=== PATIENT | male | born 1995 | race Hispanic/Latino ===

== ENCOUNTER 2017-12-11 12:17 | Outpatient (CLI) | payer OTHER | END 2017-12-11 12:18 | disposition home or self-care (01) | LOC: BICRAD 12:17 | PROVIDERS: ATTEND Family Medicine | DX: M54.2 Cervicalgia (principal) | CPT/HCPCS: 72052 ==

== ENCOUNTER 2018-01-10 15:33 | Emergency (ER) | payer OTHER ==
[2018-01-10 18:04] LABS: Hemoglobin 12.4 g/dL (14.0-18.0); Mean Corpuscular HGB CONC 31.2 g/dL (32.0-36.0); Mean Corpuscular Hemoglobin 27.9 pg (27.0-31.0); Mean Corpuscular Volume 89.3 fl (80.0-94.0); Mean Platelet Volume 7.7 fL (7.4-10.4); Platelet Count 301 thou/uL (130-400); Red Blood Cell (RBC) Count 4.46 mill/uL (4.70-6.10); White Blood Cell (WBC) Count 22.9 thou/uL (4.8-10.8)
[2018-01-10 18:19] LABS: Band 11 % (5-11); Lymphocytes 17 % (21-51); MDiff Complete? YES; Metamyelocyte 1 % (0-0); Monocytes 6 % (0-10); Myelocyte 1 % (0-0); Neutrophil 61 % (42-75); PLT Morphology Comment Appears Adequate; Polychromasia SLIGHT = 2-3 cells (100X) (0-2/hpf); Reactive Lymphocytes 3 % (0-10)
[2018-01-10 19:09] LABS: ALT (SGPT) 57 U/L (8-55); AST (SGOT) 19 U/L (5-34); Albumin 4.2 g/dL (3.5-5.0); Alkaline Phosphatase 62 U/L (40-150); Anion Gap 15 mmol/L (10-20); BUN (Urea Nitrogen) 19 mg/dL (8.9-20.6); Bilirubin, Total 0.4 mg/dL (0.2-1.2); Calc. Creatinine Clearance 0 mL/min (70-130); Calcium 9.1 mg/dL (7.8-10.44); Carbon Dioxide 22 mmol/L (22-29); Chloride 97 mmol/L (98-107); Estimated GFR-MDRD Greater than 90; Globulin 2.7 g/dL (2.4-3.5); Glucose 180 mg/dL (70-105); Potassium 4.3 mmol/L (3.5-5.1); Protein, Total 6.9 g/dL (6.0-8.3); Sodium 130 mmol/L (136-145)
== END 2018-01-10 19:00 | disposition short-term general hospital (02) ==
LOC: ERS 15:33
DX: T81.4XXA Infection following a procedure, initial encounter (principal); L08.9 Local infection of the skin and subcutaneous tissue, unspecified; Z85.528 Personal history of other malignant neoplasm of kidney
CPT/HCPCS: 36415; 80053; 85025; 99284

== ENCOUNTER 2018-03-12 12:38 | Emergency (ER) | payer OTHER ==
--- NOTE | 2018-03-12 13:55 | ULT ---
VENOUS DUPLEX SONOGRAM RIGHT UPPER EXTREMITY: History: Right arm pain and edema. FINDINGS: The right internal jugular and subclavian vein were evaluated along with the axillary, brachial, ceph alic, and basilic veins. There is good color and spectral doppler flow. IMPRESSION: No sonographic evidence of DVT right upper extremity. POS: [facility]
== END 2018-03-12 14:30 | disposition home or self-care (01) ==
LOC: ERS 12:38
DX: R20.2 Paresthesia of skin (principal); Z85.528 Personal history of other malignant neoplasm of kidney; Z79.84 Long term (current) use of oral hypoglycemic drugs; Z79.899 Other long term (current) drug therapy

== ENCOUNTER 2018-05-03 18:51 | Emergency (ER) | payer OTHER ==
[2018-05-03 19:47] LABS: #Basophils 0.1 thou/uL (0.0-0.2); #Eosinphils 0.3 thou/uL (0.0-0.7); #Lymphocytes 3.2 thou/uL (1.20-3.40); #Monocytes 0.5 thou/uL (0.11-0.59); #Neutrophils 5.9 thou/uL (1.40-6.50); %Basophils 0.7 % (0.0-1.0); %Eosinophils 2.7 % (0.0-10.0); %Lymphocytes 32.4 % (21.0-51.0); %Monocytes 4.9 % (0.0-10.0); %Neutrophils 59.3 % (42.0-75.0); Hemoglobin 11.9 g/dL (14.0-18.0); Mean Corpuscular Hemoglobin 28.3 pg (27.0-31.0); Mean Corpuscular Volume 83.3 fl (80.0-94.0); Mean Platelet Volume 6.8 fL (7.4-10.4); Platelet Count 601 thou/uL (130-400); RBC Distribution Width 14.1 % (11.5-14.5); Red Blood Cell (RBC) Count 4.21 mill/uL (4.70-6.10)
[2018-05-03 19:51] LABS: Bilirubin Negative (Negative); Blood, Urine Large (Negative); Clarity CLEAR (Clear); Glucose, Urine (Dipstick) Negative (Negative); Leukocyte Negative (Negative); Nitrite Negative (Negative); Protein, Urine (Dipstick) 30 mg/dL (Neg-Trace); Specific Gravity, Urine 1.028 (1.002-1.036); Urobilinogen 0.2 mg/dL (0.2-1.0); pH, Urine 5.5 (5.0-9.0)
[2018-05-03 19:54] LABS: Bacteria/HPF None Seen HPF (None Seen); Hyaline Casts/LPF 4-6 HYALINE CAST LPF (0-3 Hyaline); Pathc Cast-AUWi Flag 0.43 (0-2.49); RBC/HPF 0-3 HPF (0-3); Squamous Epithelial 0-3 HPF (0-3)
[2018-05-03 20:11] LABS: ALT (SGPT) 56 U/L (8-55); AST (SGOT) 36 U/L (5-34); Albumin 4.3 g/dL (3.5-5.0); Alkaline Phosphatase 98 U/L (40-150); Anion Gap 17 mmol/L (10-20); BUN (Urea Nitrogen) 19 mg/dL (8.9-20.6); Bilirubin, Total 0.2 mg/dL (0.2-1.2); Calc. Creatinine Clearance 0 mL/min (70-130); Calcium 9.7 mg/dL (7.8-10.44); Carbon Dioxide 21 mmol/L (22-29); Chloride 104 mmol/L (98-107); Estimated GFR-MDRD 69; Globulin 3.6 g/dL (2.4-3.5); Glucose 230 mg/dL (70-105); Protein, Total 7.9 g/dL (6.0-8.3); Sodium 138 mmol/L (136-145)
--- NOTE | 2018-05-03 21:30 | CT ---
CT ABDOMEN NONCONTRAST CT PELVIS NONCONTRAST: (urolithiasis protocol) DATE: 05/03/2018 TIME: 8:37 p.m. HISTORY: A 23-year-old male with increasing pain at surgical site at right flank. COMPARISON: No prior CTs of the abdomen and pelvis. 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 TECHNIQUE: IV injection of iodinated contrast media: None. Oral contrast media: None. FINDINGS: Other than for urolithiasis, the lack of IV and oral contrast limits the evaluation. The MRI of 06/12/2016 demonstrated a large number of bilateral renal cysts, and an extremely large nu mber of pancreatic cysts. These cysts are difficult to appreciate on the current CT without IV contr ast, other than the fact that they cause lobulation of the contours of these organs. There is a new external drainage catheter in the right flank, with the distal tip adjacent to the lateral aspect of the right kidney, in the Guevara pouch, abutting the right lobe of the liver. There is an approxima tely 3 x 3.5 x 2.5 cm collection of a mixture of gas and soft tissue/fluid density at the right renal lower pole, anteromedially. There is fat stranding representing edema around the upper, mid, and lo wer poles of the right kidney. There is soft tissue density material in the superficial fat abutting the lateral aspect of the right lateral abdominal wall musculature, consistent with recent post surg ical hematoma, expected. There are overlying skin nikolay at the right flank. There is no hydroneph rosis bilaterally. There are a few surgical clips adjacent to the medial aspect of the right kidney, and there is at least one adjacent to the medial aspect of the left kidney. The liver has diffusely low attenuation, representing a fatty liver. No adrenal mass. No splenomegaly. No abdominal aorti c aneurysm. No signs of acute colonic diverticulitis. No ascites or small bowel dilatation. The clint ng bases are grossly clear. IMPRESSION: 1. Post surgical changes involving the right kidney, right perirenal space, and soft tissues superfi cial to the right lateral abdominal wall flank. External drainage catheter remains in the right chin renal space. 2. A small collection of gas at the lower pole of the right kidney. Depending on how recent the jonathan aubrey is, this could represent an expected finding after wedge resection of the right renal lower pole neoplasm. It is difficult to exclude or include a small abscess. This is not amenable to percutane ous drainage. 3. Hepatic steatosis. 4. A large number of pancreatic and bilateral renal cysts, evidence for Von Hippel-Lindau disease. CECILIA Palma POS: [facility]
== END 2018-05-03 23:30 | disposition home or self-care (01) ==
LOC: ERS 18:51
DX: G89.18 Other acute postprocedural pain (principal); E11.9 Type 2 diabetes mellitus without complications; Z85.858 Personal history of malignant neoplasm of other endocrine glands; Z85.05 Personal history of malignant neoplasm of liver; Z85.528 Personal history of other malignant neoplasm of kidney; Z79.4 Long term (current) use of insulin; Z79.899 Other long term (current) drug therapy
CPT/HCPCS: 36415; 74176; 80053; 81003; 81015; 85025

== ENCOUNTER 2018-05-23 22:08 | Observation (INO) | payer OTHER ==
[2018-05-23 23:05] LABS: #Basophils 0.1 thou/uL (0.0-0.2); #Eosinphils 0.5 thou/uL (0.0-0.7); #Lymphocytes 3.3 thou/uL (1.20-3.40); #Monocytes 0.7 thou/uL (0.11-0.59); #Neutrophils 4.4 thou/uL (1.40-6.50); %Basophils 1.2 % (0.0-1.0); %Eosinophils 5.8 % (0.0-10.0); %Lymphocytes 36.4 % (21.0-51.0); %Neutrophils 48.6 % (42.0-75.0); Hemoglobin 12.2 g/dL (14.0-18.0); Mean Corpuscular HGB CONC 31.5 g/dL (32.0-36.0); Mean Corpuscular Hemoglobin 26.4 pg (27.0-31.0); Mean Corpuscular Volume 83.7 fL (78.0-98.0); Mean Platelet Volume 7.8 fL (7.4-10.4); Platelet Count 303 thou/uL (130-400); RBC Distribution Width 15.3 % (11.5-14.5); Red Blood Cell (RBC) Count 4.62 mill/uL (4.70-6.10); White Blood Cell (WBC) Count 9.1 thou/uL (4.8-10.8)
[2018-05-23 23:12] LABS: Prothrombin Time 13.4 SEC (12.0-14.7)
[2018-05-23 23:13] LABS: D-Dimer Test 0.76 *mcg/mL (0.27-0.43)
[2018-05-23 23:21] LABS: ALT (SGPT) 78 U/L (8-55); AST (SGOT) 40 U/L (5-34); Albumin 4.1 g/dL (3.5-5.0); Alkaline Phosphatase 88 U/L (40-150); Anion Gap 14 mmol/L (10-20); BUN (Urea Nitrogen) 17 mg/dL (8.9-20.6); Bilirubin, Total 0.2 mg/dL (0.2-1.2); Calc. Creatinine Clearance 0 mL/min (70-130); Calcium 9.4 mg/dL (7.8-10.44); Carbon Dioxide 23 mmol/L (22-29); Chloride 107 mmol/L (98-107); Estimated GFR-MDRD 75; Glucose 238 mg/dL (70-105); Potassium 3.9 mmol/L (3.5-5.1); Protein, Total 7.1 g/dL (6.0-8.3); Sodium 140 mmol/L (136-145)
[2018-05-23 23:23] LABS: CKMB 1.7 ng/mL (0-6.6); Troponin I Less than 0.010 ng/mL (< 0.028)
--- NOTE | 2018-05-23 23:39 | RAD ---
SINGLE VIEW OF THE CHEST: Comparison: None. History: Renal cell carcinoma status post nephrectomy with hypertension and dyspnea. FINDINGS: Single view of the chest shows a normal sized cardiomediastinal silhouette. There is no evidence of c onsolidation, mass, or pleural effusion. The bones are unremarkable. IMPRESSION: No evidence of acute cardiopulmonary disease. POS: [facility]
[2018-05-24] MEDS ORDERED: Amlodipine 5 MG TAB ONE (01:51)
[2018-05-24] MEDS ORDERED: Lisinopril 10 MG TAB ONE (01:51)
[2018-05-24] MEDS ORDERED: Ondansetron HCl/PF 4 MG/2 ML Vial IVP PRN (03:29)
[2018-05-24] MEDS ORDERED: Acetaminophen 325 MG TAB PO PRN (03:29)
[2018-05-24 03:30] VITALS: BMI 48.9
[2018-05-24] MEDS ORDERED: Azithromycin 500 MG in Sodium Chloride 0.9% 250 ML 250 ML IVPB SCH (03:30)
[2018-05-24 05:07] LABS: #Eosinphils 0.5 thou/uL (0.0-0.7); #Lymphocytes 3.2 thou/uL (1.20-3.40); #Monocytes 0.8 thou/uL (0.11-0.59); #Neutrophils 4.9 thou/uL (1.40-6.50); %Basophils 0.5 % (0.0-1.0); %Lymphocytes 33.9 % (21.0-51.0); %Monocytes 8.7 % (0.0-10.0); %Neutrophils 51.9 % (42.0-75.0); Hemoglobin 11.4 g/dL (14.0-18.0); Mean Corpuscular HGB CONC 33.3 g/dL (32.0-36.0); Mean Corpuscular Hemoglobin 27.3 pg (27.0-31.0); Mean Corpuscular Volume 81.9 fL (78.0-98.0); Platelet Count 287 thou/uL (130-400); RBC Distribution Width 14.6 % (11.5-14.5); White Blood Cell (WBC) Count 9.5 thou/uL (4.8-10.8)
[2018-05-24 05:25] LABS: Anion Gap 14 mmol/L (10-20); BUN (Urea Nitrogen) 15 mg/dL (8.9-20.6); Calc. Creatinine Clearance 233 mL/min (70-130); Calcium 9.2 mg/dL (7.8-10.44); Carbon Dioxide 22 mmol/L (22-29); Chloride 106 mmol/L (98-107); Estimated GFR-MDRD Greater than 90; Glucose 158 mg/dL (70-105); Sodium 138 mmol/L (136-145)
--- NOTE | 2018-05-24 07:48 | HP ---
CODE STATUS: FULL CODE. TIME OF EVALUATION: 03:32 a.m. CHIEF COMPLAINT: Shortness of breath. PRIMARY CARE DOCTOR: Dr. Sreedhar Wharton. HISTORY OF PRESENT ILLNESS: This is a 23-year-old male patient with a past medical history of obesity, history of Von Hippel-Lindau syndrome, patient came to the hospital after having severe shortness of breath, no clear triggers, no alleviating factors, associated with chest pain that is in the left side. It is pleuritic like chest pain has been present for the past week. As noted, he had a surgery 1 month ago that was when he had a right nephrectomy, the surgery was done because he had a kidney tumor. He reported that he had recovered well from surgery. Also important to note, he did travel to [place] 2 days ago for vacation and came back staying the driven car for hours. CT angio was negative. D-dimer was positive. Bilateral leg DVTs dialysis pending. No other reason has been identified. The official report from the CT angio is pending. Heart rate has been elevated in the 120s-140s. In outpatient ER, it has improved. REVIEW OF SYSTEMS: The patient has no delusion, no fever, chills or generalized weakness. Respiratory: The patient has cough, no sputum production , shortness of breath. Left rib cage pain worsened with inspiration. Cardiovascular: No chest pain, palpitation, or shortness of breath. Gastrointestinal: No nausea, vomiting, diarrhea, or abdominal pain. Central Nervous System: No dizziness, headache, or feeling lightheaded. Genitourinary : No burning on urination. Extremities: No leg swelling. All other systems were reviewed and negative except for the findings mentioned above. 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 The patient also has Von Hippel-Lindau disease. PAST SURGICAL HISTORY: Partial bilateral nephrectomy, craniotomy, laser eye surgery to remove tumor, PICC line to the right arm for antibiotic, status post craniotomy. PSYCHIATRIC HISTORY: No previous psychiatric history. SOCIAL HISTORY: No alcohol, no drugs. No significant history. KNOWN ALLERGIES: SULFAMETHOXAZOLE and TRIMETHOPRIM. REPORTED MEDICATIONS: ____, propranolol, pancrelipase, doxazosin. PHYSICAL EXAMINATION: VITAL SIGNS: On presentation, blood pressure 162/81 with heart rate 93, respiratory rate was 24, oxygen duration was 94 on 2 liters. GENERAL APPEARANCE: The patient is alert, oriented, in no acute distress. HEENT: Eyes: Normal conjunctivae. Moist oral mucosa. Anicteric. NECK: No JVD. RESPIRATORY: Bilateral air entry. No rales, no wheezing. Symmetric expansion. CARDIOVASCULAR: Normal rate, regular rhythm. No murmurs, no gallop, no edema. ABDOMEN: Soft, normal bowel sounds. MUSCULOSKELETAL: Baseline range of motion and strength. No tenderness. SKIN: Warm and intact. No pallor, no rash, no redness. NEUROLOGIC: Baseline sensorium. No evidence of any new focal weakness. Baseline speech. Cranial nerves seem to be intact. PSYCHIATRIC: The patient is in a good mood. No anxiety, oriented, optimal judgment. LABORATORY AND DIAGNOSTIC DATA: Reviewed. The patient has white count 9.1, hemoglobin 12.2, MCV 83, platelet count 303. PT 13, INR 1, PTT 30. D-dimer 0.76, sodium 140, potassium 3.9, chloride 107, carbon dioxide 23, anion gap 14, BUN 17, creatinine 1.1, GFR 75, glucose 238, calcium 9.4, AST 40, ALT 78. X- ray was reviewed. The patient has no evidence of any acute ____. Chest CT angio was reviewed by myself, discussed with ER physician show any acute pulmonary embolism was reported by radiologist, EKG was discussed with performing physician from ER, showed normal sinus rhythm with a rate of 88, no evidence of any acute ischemic events. ASSESSMENT AND PLAN: The patient will be placed in the hospital for the following medical problems. 1. Chest pain, left-sided, pleuritic like, clear etiology. CT angio was reported initially negative. Official report is still pending. We will treat symptomatically. If no pulmonary reasons are found, diagnosis could be considered including phrenic nerve irritation from previous surgeries in the past few days, the patient does not improve, might benefit from a CT abdomen to rule out any complication from surgery. The patient is not septic. We will monitor and treat accordingly. 2. Morbidly obese, advised to lose weight. The patient has Von Hippel-Lindau syndrome. We will need to follow up with his primary doctor for any further treatment as outpatient. 3. Deep venous thrombosis prophylaxis. 4. Hyperglycemia, glucose 238, monitor, likely resistant to insulin from morbid obesity. MTDD
--- NOTE | 2018-05-24 08:44 | CT ---
PRELIMINARY REPORT/[facility]/EMERGENTY AFTER-HOURS PROCEDURE CT Angiography Chest With Intravenous Contrast CLINICAL HISTORY: 23 years old, male; Pain; Chest pain; Patient HX: 23 yr old m with pmh of renal cell carcinoma S/P r partial nephrectomy and HTN who comes in with reports of worsening SOB and left flank pain in the con text of recent travel from to [place] 1 day ago and then came back again today. The SOB started this morning. No unilateral leg swelling. No HX of dvt or pe. TECHNIQUE: Axial computed tomographic angiography images of the chest with intravenous contrast using pulmonary embolism protocol. MIP reconstructed images were created and reviewed. CONTRAST: 85 mL of [id number] administered intravenously. COMPARISON: No relevant prior studies available. FINDINGS: Pulmonary arteries: There is no evidence of peripheral filling defects within the pulmonary arterial circulation to suggest pulmonary embolism. Aorta: No acute findings. No thoracic aortic aneurysm. Lungs: Normal. No mass. No consolidation. Pleural space: Normal. No significant effusion. No pneumothorax. Heart: Normal. No cardiomegaly. No significant pericardial effusion. No evidence of RV dysfunction. Bones/joints: No acute fracture. No dislocation. Soft tissues: Normal. Lymph nodes: Normal. No enlarged lymph nodes. Liver: There is a diffuse decrease in hepatic parenchymal density, consistent with fatty infiltration . IMPRESSION: There is no CT evidence of acute pulmonary embolism. Thank you for allowing us to participate in the care of your patient. Dictated and Authenticated by: Kei Gibbs MD 05/24/2018 1:09 AM Central Time ([place] & [place]) CTA CHEST WITH 3D VOLUME RENDERING: The exam is in general agreement with the preliminary interpretation provided above. FINDINGS: There is no evidence of pulmonary embolus. Not mentioned in the preliminary report, there are subtle areas of faint ground glass opacification of the right lung. IMPRESSION: 1. No evidence of a significant pulmonary embolus. 2. Nonspecific small areas of ground glass opacity within the right lung. This could reflect an aty pical infection. Correlate clinically. If the patient is experiencing clinical symptoms, follow-up imaging may be obtained as clinically necessary for further evaluation. POS: [facility]
[2018-05-24] MEDS ORDERED: Enoxaparin Sodium 40 MG/0.4 ML SYRINGE SC SCH (09:00)
[2018-05-24] MEDS ORDERED: Prevnar 13-Val Conj/PF 0.5 ML SYRINGE IM ONE (09:00)
--- NOTE | 2018-05-24 12:15 | ULT ---
DOPPLER VENOUS ULTRASOUND OF BOTH LOWER EXTREMITIES: INDICATIONS: History of dyspnea and shortness of breath. TECHNIQUE: Barragan scale, color Doppler, and vascular duplex with spectral analysis was performed of the deep venou s structures of both lower extremities. The common femoral vein, superficial femoral vein, popliteal vein, posterior tibial vein, proximal greater saphenous, and proximal profunda veins were assessed bi laterally. FINDINGS: There is normal compression, flow, and augmentation seen within the deep venous structures of both lo wer extremities. IMPRESSION: No evidence of deep venous thrombosis within both lower extremities. POS: [facility]
--- NOTE | 2018-05-24 14:55 | ULT ---
SONOGRAM ABDOMEN COMPLETE: History: Abdominal endocrine tumor with metastases. FINDINGS: Hyperechoic stones are present within the gallbladder lumen. There is no gallbladder wall thickening or pericholecystic fluid. Common duct is 0.4 cm. Liver is diffusely echogenic. No focal mass is evide nt. No free fluid. There is mild prominence of the left renal collecting system. The spleen, right ki dney, and visualized portions of the abdominal aorta, IVC, and pancreas are unremarkable. IMPRESSION: 1. Cholelithiasis. No evidence of acute biliary obstruction. 2. Hepatosteatosis. 3. Mild prominence left renal collecting system. Clinical correlation regarding other signs and sympt oms of left renal polyp is required. POS: [facility]
[2018-05-24 15:42] VITALS: BP 131/78; TEMP 98.6
[2018-05-24 17:21] LABS: Cardiac Risk 4.3 (Less than 4.5)
== END 2018-05-24 19:14 | disposition home or self-care (01) ==
LOC: SCSER 22:08 → 2SW 05-24 01:48
PROVIDERS: ADMIT Hospitalist; ATTEND Hospitalist
DX: R07.9 Chest pain, unspecified (principal); E66.01 Morbid (severe) obesity due to excess calories; E11.65 Type 2 diabetes mellitus with hyperglycemia; Z79.4 Long term (current) use of insulin; Z88.8 Allergy status to other drugs, medicaments and biological substances; Z88.2 Allergy status to sulfonamides; Z79.899 Other long term (current) drug therapy
CPT/HCPCS: 36415; 36416; 71045; 71275; 76700; 80048; 80053; 80061; 82553; 83880; 84484; 85025; 85379; 85610; 85730; 90471; 90670; 93005; 93970; 96360; 96361; 96365; 96372; G0009; G0378; J0456; J1650; J7050

== ENCOUNTER 2019-09-12 15:47 | Outpatient (CLI) | payer OTHER ==
--- NOTE | 2019-09-12 16:17 | CT ---
CT Chest High Resolution History: Chest pain. Elevated d-dimer Comparison: Chest radiograph September 08, 2019 Findings: High-resolution CT of the chest was performed at 1 cm intervals. No peripheral reticulation, bronchiectasis, honeycombing. No abnormal round glass opacities. No pneumothorax or effusion. No suspicious pulmonary nodules. Subtle focus of scar within the caudal aspect of the lingula. Incompletely evaluated are multiple peripheral calcifications of the right kidney, unchanged from 201 8 No mediastinal adenopathy. No pericardial effusion. Aortic contour is normal. Thoracic spine is normal as well as the sternum and manubrium. No displaced rib fracture. No acute os seous abnormality. Impression: Normal examination of the chest. No evidence for interstitial lung disease or pneumonia.
== END 2019-09-12 15:48 | disposition home or self-care (01) ==
LOC: BICCT 15:47
PROVIDERS: ATTEND Family Medicine
DX: R07.9 Chest pain, unspecified (principal); R79.1 Abnormal coagulation profile
CPT/HCPCS: 71250

== ENCOUNTER 2020-03-04 17:00 | Emergency (ER) | payer OTHER ==
[2020-03-04 17:25] LABS: Bilirubin Negative (Negative); Blood, Urine 3+ (Negative); Clarity Turbid (Clear); Glucose, Urine (Dipstick) Normal (Negative); Leukocyte 25 Leu/uL (Negative); Nitrite Negative (Negative); Protein, Urine (Dipstick) 30 mg/dL (Neg-Trace); Urobilinogen Normal mg/dL (Less than 2)
[2020-03-04 17:26] LABS: Bacteria/HPF None Seen HPF (None Seen); RBC/HPF Greater than 50 HPF (0-3); Squamous Epithelial 0-3 HPF (0-3); WBC/HPF 0-3 HPF (0-3)
[2020-03-04 17:35] LABS: #Basophils 0.1 thou/uL (0.0-0.2); #Eosinphils 0.3 thou/uL (0.0-0.7); #Lymphocytes 3.7 thou/uL (1.20-3.40); #Monocytes 0.6 thou/uL (0.11-0.59); #Neutrophils 4.2 thou/uL (1.40-6.50); %Basophils 0.7 % (0.0-1.0); %Eosinophils 3.4 % (0.0-10.0); %Lymphocytes 41.9 % (21.0-51.0); %Monocytes 6.3 % (0.0-10.0); %Neutrophils 47.6 % (42.0-75.0); Hemoglobin 13.3 g/dL (14.0-18.0); Mean Corpuscular HGB CONC 33.2 g/dL (32.0-36.0); Mean Corpuscular Hemoglobin 29.1 pg (27.0-31.0); Mean Corpuscular Volume 87.5 fL (78.0-98.0); Mean Platelet Volume 8.5 fL (7.4-10.4); Platelet Count 294 thou/uL (130-400); RBC Distribution Width 13.5 % (11.5-14.5); Red Blood Cell (RBC) Count 4.58 mill/uL (4.70-6.10); White Blood Cell (WBC) Count 8.9 thou/uL (4.8-10.8)
[2020-03-04] MEDS ORDERED: Ketorolac Tromethamine 30 MG/ML VIAL ONE (17:45)
[2020-03-04] MEDS ORDERED: Ondansetron PF 4 MG/2 ML Vial ONE (17:45)
[2020-03-04 17:57] LABS: ALT (SGPT) 28 U/L (8-55); AST (SGOT) 22 U/L (5-34); Albumin 4.2 g/dL (3.5-5.0); Alkaline Phosphatase 68 U/L (40-110); Anion Gap 14 mmol/L (10-20); BUN (Urea Nitrogen) 11 mg/dL (8.9-20.6); Bilirubin, Total 0.2 mg/dL (0.2-1.2); Calc. Creatinine Clearance 0 mL/min (70-130); Calcium 9.2 mg/dL (7.8-10.44); Carbon Dioxide 23 mmol/L (22-29); Chloride 105 mmol/L (98-107); Estimated GFR-MDRD 75; Globulin 2.8 g/dL (2.4-3.5); Glucose 111 mg/dL (70-105); Sodium 138 mmol/L (136-145)
--- NOTE | 2020-03-04 19:56 | CT ---
CT ABDOMEN AND PELVIS WITHOUT CONTRAST: History: Left sided flank pain. Comparison: 2018 FINDINGS: Mild scarring in the lingula. No pericardial effusion. Bilateral lumbar hernias, larger on the right, containing fat and bowel, without obstruction. Surgica l clips along the kidneys bilaterally. Pancreas is enlarged with numerous hypodensities. No right sided hydroureteronephrosis. In the left p roximal ureter is a minimally obstructing 2 x 4 mm calculus, 5 cm from the renal pelvis. Minimal dila tion. The distal left ureter is nondilated. Punctate calcific debris left inferior renal collecting system. There is an abnormal lobular appearance of both kidneys. The pancreas is visualized and normal. IMPRESSION: 1. Partially obstructing calculus proximal left ureter measuring 2 x 4 mm, 5 cm from the renal pelvis with minimal upstream dilatation. POS: [facility]
== END 2020-03-04 20:24 | disposition home or self-care (01) ==
LOC: ERS 17:00
DX: N20.1 Calculus of ureter (principal); E11.9 Type 2 diabetes mellitus without complications; C7A.1 Malignant poorly differentiated neuroendocrine tumors; C78.7 Secondary malignant neoplasm of liver and intrahepatic bile duct; Z79.4 Long term (current) use of insulin; Z79.899 Other long term (current) drug therapy
CPT/HCPCS: 74176; 80053; 81003; 81015; 85025; 96361; 96374; 96375; J1885; J2405

== ENCOUNTER 2020-05-12 09:40 | Emergency (ER) | payer OTHER | END 2020-05-12 10:35 | disposition home or self-care (01) | LOC: ERS 09:40 | DX: R51 Headache (principal); Z20.828 Contact with and (suspected) exposure to other viral communicable diseases; E11.9 Type 2 diabetes mellitus without complications; Z79.899 Other long term (current) drug therapy; Z79.4 Long term (current) use of insulin | CPT/HCPCS: 87635; 99283; U0003 ==

== ENCOUNTER 2021-04-08 09:58 | Emergency (ER) | payer OTHER ==
[2021-04-08] MEDS ORDERED: methylPREDNISolone Sod Succ/PF 125 MG/2 ML VIAL ONE (10:50)
[2021-04-08] MEDS ORDERED: diphenhydrAMINE 50 MG/ML VIAL ONE (10:50)
[2021-04-08] MEDS ORDERED: Metoclopramide HCl 10 MG/2 ML VIAL ONE (10:50)
[2021-04-08 11:12] LABS: #Basophils 0.1 thou/uL (0.0-0.2); #Eosinphils 0.2 thou/uL (0.0-0.7); #Lymphocytes 2.4 thou/uL (1.20-3.40); #Monocytes 0.5 thou/uL (0.11-0.59); #Neutrophils 5.1 thou/uL (1.40-6.50); %Basophils 0.7 % (0.0-1.0); %Eosinophils 2.1 % (0.0-10.0); %Lymphocytes 29.5 % (21.0-51.0); %Monocytes 5.9 % (0.0-10.0); %Neutrophils 61.8 % (42.0-75.0); Hemoglobin 15.5 g/dL (14.0-18.0); Mean Corpuscular HGB CONC 33.2 g/dL (32.0-36.0); Mean Corpuscular Hemoglobin 28.9 pg (27.0-31.0); Mean Corpuscular Volume 87.2 fL (78.0-98.0); Mean Platelet Volume 8.3 fL (7.4-10.4); Platelet Count 291 thou/uL (130-400); RBC Distribution Width 14.5 % (11.5-14.5); Red Blood Cell (RBC) Count 5.37 mill/uL (4.70-6.10); White Blood Cell (WBC) Count 8.3 thou/uL (4.8-10.8)
[2021-04-08 11:28] LABS: ALT (SGPT) 159 U/L (8-55); AST (SGOT) 38 U/L (5-34); Albumin 4.1 g/dL (3.5-5.0); Alkaline Phosphatase 87 U/L (40-110); Anion Gap 15 mmol/L (10-20); BUN (Urea Nitrogen) 17 mg/dL (8.9-20.6); Bilirubin, Total 0.4 mg/dL (0.2-1.2); Calc. Creatinine Clearance 0 mL/min (70-130); Carbon Dioxide 22 mmol/L (22-29); Chloride 101 mmol/L (98-107); Globulin 3.1 g/dL (2.4-3.5); Glucose 212 mg/dL (70-105); Potassium 4.1 mmol/L (3.5-5.1); Protein, Total 7.2 g/dL (6.0-8.3); Sodium 134 mmol/L (136-145)
== END 2021-04-08 13:01 | disposition home or self-care (01) ==
LOC: ERS 09:58
DX: C71.6 Malignant neoplasm of cerebellum (principal); E11.9 Type 2 diabetes mellitus without complications; Z79.4 Long term (current) use of insulin; Z85.89 Personal history of malignant neoplasm of other organs and systems; Z85.05 Personal history of malignant neoplasm of liver; Z85.528 Personal history of other malignant neoplasm of kidney; Z79.899 Other long term (current) drug therapy
CPT/HCPCS: 36415; 70450; 80053; 85025; 96365; 96375; J1200; J2765; J2930

== ENCOUNTER 2021-04-15 11:58 | Emergency (ER) | payer OTHER ==
[2021-04-15 13:07] LABS: #Basophils 0.1 thou/uL (0.0-0.2); #Eosinphils 0.1 thou/uL (0.0-0.7); #Lymphocytes 1.8 thou/uL (1.20-3.40); #Monocytes 0.5 thou/uL (0.11-0.59); #Neutrophils 7.5 thou/uL (1.40-6.50); %Basophils 0.9 % (0.0-1.0); %Eosinophils 0.7 % (0.0-10.0); %Lymphocytes 18.5 % (21.0-51.0); %Monocytes 5.1 % (0.0-10.0); %Neutrophils 74.9 % (42.0-75.0); Hemoglobin 15.9 g/dL (14.0-18.0); Mean Corpuscular Hemoglobin 28.6 pg (27.0-31.0); Mean Corpuscular Volume 86.8 fL (78.0-98.0); Mean Platelet Volume 8.1 fL (7.4-10.4); Platelet Count 305 thou/uL (130-400); RBC Distribution Width 14.6 % (11.5-14.5); Red Blood Cell (RBC) Count 5.57 mill/uL (4.70-6.10)
[2021-04-15] MEDS ORDERED: Meclizine HCl 25 MG TAB ONE (13:14)
[2021-04-15 13:27] LABS: ALT (SGPT) 25 U/L (8-55); AST (SGOT) 14 U/L (5-34); Albumin 4.4 g/dL (3.5-5.0); Alkaline Phosphatase 73 U/L (40-110); Anion Gap 16 mmol/L (10-20); BUN (Urea Nitrogen) 18 mg/dL (8.9-20.6); Bilirubin, Total 0.4 mg/dL (0.2-1.2); Calc. Creatinine Clearance 0 mL/min (70-130); Calcium 9.4 mg/dL (7.8-10.44); Carbon Dioxide 20 mmol/L (22-29); Chloride 103 mmol/L (98-107); Glucose 247 mg/dL (70-105); Lipase 37 U/L (8-78); Potassium 4.2 mmol/L (3.5-5.1); Protein, Total 7.4 g/dL (6.0-8.3); Sodium 135 mmol/L (136-145)
[2021-04-15 14:57] LABS: Bacteria/HPF None Seen HPF (None Seen); Bilirubin Negative (Negative); Blood, Urine Trace (Negative); Clarity Clear (Clear); Glucose, Urine (Dipstick) Greater than 1000 mg/dL (Negative); Ketone, Urine 10 mg/dL (Negative); Leukocyte Negative Leu/uL (Negative); Nitrite Negative (Negative); Protein, Urine (Dipstick) 300 mg/dL (Neg-Trace); RBC/HPF 0-3 HPF (0-3); Specific Gravity, Urine 1.043 (1.002-1.036); Squamous Epithelial None Seen HPF (0-3); Urobilinogen Normal mg/dL (Less than 2); WBC/HPF 0-3 HPF (0-3)
[2021-04-15 19:08] LABS: SARS-CoV-2 NAA Rapid Test Not Detected (NotDetected)
== END 2021-04-15 20:11 | disposition short-term general hospital (02) ==
LOC: ERS 11:58
DX: D43.1 Neoplasm of uncertain behavior of brain, infratentorial (principal); G91.1 Obstructive hydrocephalus; E11.9 Type 2 diabetes mellitus without complications; Z20.822 Contact with and (suspected) exposure to COVID-19; Z79.899 Other long term (current) drug therapy
CPT/HCPCS: 36416; 70450; 80053; 81003; 81015; 83690; 85025; U0002; U0005

== ENCOUNTER 2021-07-01 19:00 | Outpatient (CLI) | payer OTHER | END 2021-07-01 19:01 | disposition home or self-care (01) | LOC: SLEEPLAB 19:00 | PROVIDERS: ATTEND Family Medicine | DX: G47.33 Obstructive sleep apnea (adult) (pediatric) (principal); R06.83 Snoring; G47.10 Hypersomnia, unspecified; G47.00 Insomnia, unspecified; I10 Essential (primary) hypertension; E11.9 Type 2 diabetes mellitus without complications | CPT/HCPCS: 95811 ==

== ENCOUNTER 2022-07-21 08:16 | Emergency (ER) | payer OTHER ==
[2022-07-21] MEDS ORDERED: diphenhydrAMINE 50 MG/ML VIAL ONE (10:15)
[2022-07-21] MEDS ORDERED: Metoclopramide HCl 10 MG/2 ML VIAL ONE (10:15)
[2022-07-21 11:45] LABS: SARS-CoV-2 NAA Rapid Test Not Detected (NotDetected)
[2022-07-21 11:56] LABS: #Basophils 0.1 thou/uL (0.0-0.2); #Eosinphils 0.1 thou/uL (0.0-0.7); #Lymphocytes 2.6 thou/uL (1.20-3.40); #Monocytes 0.4 thou/uL (0.11-0.59); #Neutrophils 3.2 thou/uL (1.40-6.50); %Basophils 1.1 % (0.0-1.0); %Lymphocytes 39.8 % (21.0-51.0); %Monocytes 6.4 % (0.0-10.0); %Neutrophils 50.7 % (42.0-75.0); Mean Corpuscular HGB CONC 33.9 g/dL (32.0-36.0); Mean Corpuscular Hemoglobin 29.1 pg (27.0-31.0); Mean Corpuscular Volume 85.7 fL (78.0-98.0); Mean Platelet Volume 8.4 fL (7.4-10.4); Platelet Count 231 thou/uL (130-400); RBC Distribution Width 13.7 % (11.5-14.5); Red Blood Cell (RBC) Count 4.82 mill/uL (4.70-6.10); White Blood Cell (WBC) Count 6.4 thou/uL (4.8-10.8)
[2022-07-21 12:06] LABS: INR-International Normal Ratio 0.9; Prothrombin Time 12.6 sec (12.0-14.7)
[2022-07-21 12:11] LABS: ALT (SGPT) 15 U/L (8-55); AST (SGOT) 14 U/L (5-34); Albumin 3.8 g/dL (3.5-5.0); Alkaline Phosphatase 84 U/L (40-110); Anion Gap 19 mmol/L (10-20); BUN (Urea Nitrogen) 16 mg/dL (8.9-20.6); Bilirubin, Total 0.3 mg/dL (0.2-1.2); Calc. Creatinine Clearance 0 mL/min (70-130); Calcium 8.8 mg/dL (7.8-10.44); Carbon Dioxide 21 mmol/L (22-29); Chloride 103 mmol/L (98-107); Estimated GFR 114; Globulin 2.9 g/dL (2.4-3.5); Glucose 213 mg/dL (70-105); Potassium 3.8 mmol/L (3.5-5.1); Protein, Total 6.7 g/dL (6.0-8.3); Sodium 139 mmol/L (136-145)
== END 2022-07-21 11:55 | disposition short-term general hospital (02) ==
LOC: ERS 08:16
DX: G91.9 Hydrocephalus, unspecified (principal); G93.89 Other specified disorders of brain; E11.9 Type 2 diabetes mellitus without complications; Z20.822 Contact with and (suspected) exposure to COVID-19
CPT/HCPCS: 36415; 70450; 80053; 85025; 85610; 85730; 96365; 96375; J1200; J2765; U0002

== ENCOUNTER 2022-10-18 19:39 | Emergency (ER) | payer OTHER ==
[2022-10-18] MEDS ORDERED: Acetaminophen 500 MG TAB ONE (21:57)
[2022-10-18] MEDS ORDERED: Prochlorperazine 10 MG/2 ML VIAL ONE (21:57)
[2022-10-18] MEDS ORDERED: diphenhydrAMINE 50 MG/ML VIAL ONE (21:57)
== END 2022-10-18 23:21 | disposition home or self-care (01) ==
LOC: ERS 19:39
DX: R51.9 Headache, unspecified (principal); E11.9 Type 2 diabetes mellitus without complications; Z79.4 Long term (current) use of insulin
CPT/HCPCS: 96374; 96375; J0780; J1200

== ENCOUNTER 2023-03-09 14:22 | Outpatient (CLI) | payer OTHER | END 2023-03-09 14:23 | disposition home or self-care (01) | LOC: SCSMRI 14:22 | PROVIDERS: ATTEND Neurological Surgery | DX: D49.6 Neoplasm of unspecified behavior of brain (principal) | CPT/HCPCS: 70553; 82565 ==

== ENCOUNTER 2023-09-12 13:23 | Emergency (ER) | payer OTHER ==
[2023-09-12] MEDS ORDERED: Lidocaine 1% w/Epinephrine 1:100K 20 ML VIAL ONE (15:24)
[2023-09-12] MEDS ORDERED: Bacitracin 1 PK ONE (17:30)
== END 2023-09-12 17:36 | disposition home or self-care (01) ==
LOC: ERS 13:23
DX: S81.011A Laceration without foreign body, right knee, initial encounter (principal); S90.411A Abrasion, right great toe, initial encounter; E11.9 Type 2 diabetes mellitus without complications; W01.0XXA Fall on same level from slipping, tripping and stumbling without subsequent striking against object, initial encounter
CPT/HCPCS: 12002

== ENCOUNTER 2024-09-21 11:00 | Outpatient (CLI) | payer OTHER | END 2024-09-21 11:01 | disposition home or self-care (01) | LOC: BICRAD 11:00 | PROVIDERS: ATTEND Family Medicine | DX: M79.671 Pain in right foot (principal) ==